=== PATIENT | male | born 1985 | race Caucasian/White ===

== ENCOUNTER 2017-12-27 12:56 | Emergency (ER) | payer BC, OTHER ==
[~2017-12-27] VITALS: Ht 175.3 cm; Wt 92.7 kg
[2017-12-27 13:03] VITALS: TEMP 36.6; Ht 175.3 cm; Wt 92.7 kg
[2017-12-27 13:08] VITALS: O2SAT 96
[2017-12-27] MEDS ORDERED: KETOROLAC TROMETHAMINE 30 MG/ML VIAL IV STA (13:12)
[2017-12-27] MEDS ORDERED: SODIUM CHLORIDE 0.9% 1000ML 1,000 ML IV STA (13:12)
[2017-12-27 13:40] LABS: BASO % 0.1 %; BASO ABS # 0.01 K/uL (0-0.2); EOS % 1.4 %; EOS ABS # 0.13 K/uL (0-0.5); HEMOGLOBIN 14.5 g/dL (14.0-18.0); IG# 0.02 K/uL (0.00-0.02); LYMPH % 18.3 %; LYMPH ABS # 1.74 K/uL (1.2-3.4); MEAN PLATELET VOLUME 9.1 fL (7.4-10.4); MONO ABS # 0.95 K/uL (0.11-0.59); NEUT ABS # 6.68 K/uL (1.4-6.5); PLATELET COUNT 215 K/uL (130-400); RED CELL DISTRIBUTION WIDTH CV 14.3 % (11.5-14.5); RED CELL DISTRIBUTION WIDTH SD 45.9 fL (36.4-46.3); WHITE BLOOD COUNT 9.53 K/uL (4.8-10.8)
--- NOTE | 2017-12-27 13:46 | DIAGNOSTIC IMAGING REPORT ---
CHEST ONE VIEW PORTABLE CLINICAL HISTORY: 32 years-old Male presenting with Chest Pain. TECHNIQUE: Portable upright AP view of the chest was obtained. COMPARISON: None. FINDINGS: Cardiomediastinal silhouette normal. Mildly prominent pulmonary vasculature Lungs and pleural spaces clear. Osseous structures normal. Upper abdomen normal. IMPRESSION: 1. Mildly prominent pulmonary vasculature could suggest volume overload. No other convincing evidence of acute cardiopulmonary disease. Electronically signed by: Deangelo Chaves M.D. 12/27/2017 1:45 PM Dictated Date/Time: 12/27/2017 1:44 PM
[2017-12-27 14:01] LABS: BLOOD UREA NITROGEN 16 mg/dl (7-18); CALCIUM 8.8 mg/dl (8.5-10.1); CARBON DIOXIDE 30 mmol/L (21-32); CREATININE 1.06 mg/dl (0.60-1.40); GLUCOSE 110 mg/dl (70-99); POTASSIUM 3.6 mmol/L (3.5-5.1); SODIUM 136 mmol/L (136-145)
[2017-12-27] MEDS ORDERED: OPTIRAY 320 IV PRN (14:15)
--- NOTE | 2017-12-27 14:47 | DIAGNOSTIC IMAGING REPORT ---
(CHEST FOR PE) ANGIO WITH CLINICAL HISTORY: 32 years-old Male presenting with ^+dd and SOB c/ chest pain. TECHNIQUE: Multidetector CT angiography of the chest was performed after administration of intravenous contrast. 3-D volumetric and/or maximum intensity projection (MIP) images were subsequently reconstructed for review. IV contrast: 87 mL of Optiray 320. A dose lowering technique was used consistent with the principles of ALARA (as low as reasonably achievable). COMPARISON: None. CT DOSE (mGy.cm): The estimated cumulative dose is 406.88 mGy.cm. 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 Pulmonary vasculature: The study is suboptimal for the assessment of the pulmonary vascular tree secondary to timing of the contrast bolus. Allowing for limited image quality, no central filling defect to suggest pulmonary embolus. Main pulmonary artery is not enlarged. No flattening of the interventricular septum. No intracardiac filling defect. No reflux of contrast into the hepatic veins. Remaining chest: On soft tissue windows, normal thyroid. Bilateral gynecomastia. No axillary, supraclavicular, hilar, or mediastinal lymphadenopathy. Atherosclerosis of the aorta. Normal heart size. No pericardial or pleural effusion. Hepatic steatosis. On lung windows, minimal dependent changes likely atelectasis. No other focal nodule or infiltrate. Airways patent. On bone windows, normal osseous structures. IMPRESSION: 1. Allowing for suboptimal image quality, no evidence of pulmonary embolus. No acute intrathoracic pathology. 2. Hepatic steatosis. Electronically signed by: Deangelo Chaves M.D. 12/27/2017 2:46 PM Dictated Date/Time: 12/27/2017 2:41 PM
[2017-12-27] MEDS ORDERED: CETI10TA84 PO (14:56)
[2017-12-27 15:38] VITALS: BP 134/79; PULSE 97; O2SAT 99
--- NOTE | 2017-12-27 19:42 | EMERGENCY ROOM VISIT NOTE ---
History Report prepared by Christopher: Fabián Doyle Under the Supervision of: Dr. Julius Pate D.O. First contact with patient: 13:04 Chief Complaint: CHEST PAIN Stated Complaint: R SHOULDER AND CHEST PAIN Nursing Triage Summary: pt reports after carrying heavy bags last night awoke in the night with R shoulder pain took aleve and went to sleep. This AM awoke with midsternal cp and sob reports this happens with my allergies but I can not tell. R shoulder pain cont today History of Present Illness The patient is a 32 year old male who presents to the Emergency Room with complaints of persistent chest pain since 1000 this morning. He currently rates his pain a 6/10 in severity. He notes the pain began in his right shoulder and elbow this morning at 0300 after he was carrying heavy bags. He notes a baseline cough and nasal drainage due to allergies. His right arm pain has completely resolved at this point. Chest pain is only present with deep breathing. If she is not breathing he has absolutely no chest pain. He denies any ear pain. He denies any history of aortic issues. Pt denies headache, change in vision, fevers, shortness of breath, nausea, vomiting, diarrhea, pain with urination. Patient denies diabetes, hypertension, hyperlipidemia, CAD, history of sudden at a young age, and smoking. Patient denies swelling of calves, recent trips, history of immobilization or recent surgery, prior history of DVT, hemoptysis, history of malignancy, or history of smoking. Source of History: patient Onset: 1000 this morning Position: chest Symptom Intensity: 6/10 Timing: other (persistent) Associated Symptoms: + cough, No fevers, No headache, No SOB, No vomiting, No diarrhea, No urinary symptoms Note: He notes right shoulder and elbow pain. He denies any ear pain or change in vision. Review of Systems See HPI for pertinent positives & negatives. A total of 10 systems reviewed and were otherwise negative. Past Medical & Surgical Medical Problems: (1) Sinus infection Surgical Problems: (1) H/O wisdom tooth extraction Family History Heart disease Hypertension Social History Smoking Status: Never Smoker Smokeless Tobacco Use: No Alcohol Use: occasionally (2/week) Marital Status: Housing Status: lives with significant other Occupation Status: employed Current/Historical Medications Scheduled Cetirizine (Zyrtec), 10 MG PO DAILY Allergies Coded Allergies: Nut Tree (Unverified Allergy, Severe, S.O.B, SWELLING, HIVES, 12/27/17) Animal Dander (Unverified Allergy, Intermediate, SNEEZING, 12/27/17) Dust (Unverified Allergy, Intermediate, SNEEZING, 12/27/17) POLLEN (Unverified Allergy, Intermediate, SNEEZING, 12/27/17) Uncoded Allergies: NUTS (Allergy, Unknown, 03/06/03) Physical Exam Vital Signs Date Time Temp Pulse Resp B/P (MAP) Pulse Ox O2 Delivery O2 Flow Rate FiO2 12/27/17 15:38 97 18 134/79 99 Room Air 12/27/17 14:30 85 18 113/82 100 Room Air 12/27/17 13:28 77 18 128/83 99 Room Air 12/27/17 13:12 85 12/27/17 13:08 96 Room Air 12/27/17 13:03 36.6 82 20 136/79 100 Room Air Physical Exam GENERAL: Sitting up in bed, alert, well appearing, well nourished, no distress, non-toxic EYE EXAM: normal conjunctiva. OROPHARYNX: no exudate, no erythema, lips, buccal mucosa, and tongue normal and mucous membranes are moist NECK: supple, no nuchal rigidity, no adenopathy, non-tender LUNGS: Clear to auscultation. Normal chest wall mechanics HEART: no murmurs, S1 normal and S2 normal ABDOMEN: abdomen soft, non-tender, normo-active bowel sounds, no masses, no rebound or guarding. BACK: Back is symmetrical on inspection and there is no deformity, no midline tenderness, no CVA tenderness. SKIN: no rashes and no bruising UPPER EXTREMITIES: upper extremities are grossly normal. Radial pulses equal. Pain with abduction of right shoulder greater than 80 degrees. LOWER EXTREMITIES: No pitting edema. Calves are equal bilateral. NEURO EXAM: Normal sensorium, cranial nerves II-XII grossly intact, normal speech, no gross weakness of arms, no gross weakness of legs. Medical Decision & Procedures ER Provider Diagnostic Interpretation: Radiology results as stated below per my review and the radiologist's interpretation: CHEST ONE VIEW PORTABLE CLINICAL HISTORY: 32 years-old Male presenting with Chest Pain. TECHNIQUE: Portable upright AP view of the chest was obtained. COMPARISON: None. FINDINGS: Cardiomediastinal silhouette normal. Mildly prominent pulmonary vasculature Lungs and pleural spaces clear. Osseous structures normal. Upper abdomen normal. IMPRESSION: 1. Mildly prominent pulmonary vasculature could suggest volume overload. No other convincing evidence of acute cardiopulmonary disease. Electronically signed by: Deangelo Chaves M.D. 12/27/2017 1:45 PM Dictated Date/Time: 12/27/2017 1:44 PM (CHEST FOR PE) ANGIO WITH CLINICAL HISTORY: 32 years-old Male presenting with ^+dd and SOB c/ chest pain. TECHNIQUE: Multidetector CT angiography of the chest was performed after administration of intravenous contrast. 3-D volumetric and/or maximum intensity projection (MIP) images were subsequently reconstructed for review. IV contrast: 87 mL of Optiray 320. A dose lowering technique was used consistent with the principles of ALARA (as low as reasonably achievable). COMPARISON: None. CT DOSE (mGy.cm): The estimated cumulative dose is 406.88 mGy.cm. 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 Pulmonary vasculature: The study is suboptimal for the assessment of the pulmonary vascular tree secondary to timing of the contrast bolus. Allowing for limited image quality, no central filling defect to suggest pulmonary embolus. Main pulmonary artery is not enlarged. No flattening of the interventricular septum. No intracardiac filling defect. No reflux of contrast into the hepatic veins. Remaining chest: On soft tissue windows, normal thyroid. Bilateral gynecomastia. No axillary, supraclavicular, hilar, or mediastinal lymphadenopathy. Atherosclerosis of the aorta. Normal heart size. No pericardial or pleural effusion. Hepatic steatosis. On lung windows, minimal dependent changes likely atelectasis. No other focal nodule or infiltrate. Airways patent. On bone windows, normal osseous structures. IMPRESSION: 1. Allowing for suboptimal image quality, no evidence of pulmonary embolus. No acute intrathoracic pathology. 2. Hepatic steatosis. Electronically signed by: Deangelo Chaves M.D. 12/27/2017 2:46 PM Dictated Date/Time: 12/27/2017 2:41 PM Laboratory Results 12/27/17 13:20 Red Blood Count 5.00, Mean Corpuscular Volume 88.0, Mean Corpuscular Hemoglobin 29.0, Mean Corpuscular Hemoglobin Concent 33.0, Mean Platelet Volume 9.1, Neutrophils (%) (Auto) 70.0, Lymphocytes (%) (Auto) 18.3, Monocytes (%) (Auto) 10.0, Eosinophils (%) (Auto) 1.4, Basophils (%) (Auto) 0.1, Neutrophils # (Auto ) 6.68, Lymphocytes # (Auto) 1.74, Monocytes # (Auto) 0.95, Eosinophils # (Auto ) 0.13, Basophils # (Auto) 0.01 12/27/17 13:20 Test 12/27/17 13:20 White Blood Count 9.53 K/uL (4.8-10.8) Red Blood Count 5.00 M/uL (4.7-6.1) Hemoglobin 14.5 g/dL (14.0-18.0) Hematocrit 44.0 % (42-52) Mean Corpuscular Volume 88.0 fL (80-100) Mean Corpuscular Hemoglobin 29.0 pg (25-34) Mean Corpuscular Hemoglobin Concent 33.0 g/dl (32-36) Platelet Count 215 K/uL (130-400) Mean Platelet Volume 9.1 fL (7.4-10.4) Neutrophils (%) (Auto) 70.0 % Lymphocytes (%) (Auto) 18.3 % Monocytes (%) (Auto) 10.0 % Eosinophils (%) (Auto) 1.4 % Basophils (%) (Auto) 0.1 % Neutrophils # (Auto) 6.68 K/uL (1.4-6.5) Lymphocytes # (Auto) 1.74 K/uL (1.2-3.4) Monocytes # (Auto) 0.95 K/uL (0.11-0.59) Eosinophils # (Auto) 0.13 K/uL (0-0.5) Basophils # (Auto) 0.01 K/uL (0-0.2) RDW Standard Deviation 45.9 fL (36.4-46.3) RDW Coefficient of Variation 14.3 % (11.5-14.5) Immature Granulocyte % (Auto) 0.2 % Immature Granulocyte # (Auto) 0.02 K/uL (0.00-0.02) D-Dimer 560 ug/L FEU (0-500) Anion Gap 1.0 mmol/L (3-11) Est Creatinine Clear Calc Drug Dose 113.6 ml/min Estimated GFR () 107.9 Estimated GFR (Non- 93.1 BUN/Creatinine Ratio 14.7 (10-20) Calcium Level 8.8 mg/dl (8.5-10.1) Troponin I < 0.015 ng/ml (0-0.045) Laboratory results per my review. Medications Administered Medications (Trade) Dose Ordered Sig/Bailey Route Start Time Stop Time Status Last Admin Dose Admin Sodium Chloride 1,000 ml @ 999 mls/hr Q1H1M STAT IV 12/27/17 13:12 12/27/17 14:12 DC 12/27/17 13:26 999 MLS/HR Ketorolac Tromethamine (Toradol Inj) 30 mg NOW STAT IV 12/27/17 13:12 12/27/17 13:13 DC 12/27/17 13:26 30 MG ECG Indication: chest pain Rate (beats per minute): 76 Rhythm: sinus rhythm Findings: no ectopy (no PVCs), other (Normal axis) Change: Patient's electrocardiogram interpreted by me. ED Course ED COURSE: Vital signs were reviewed and showed normal. The patients medical record was reviewed The above diagnostic studies were performed and reviewed. ED treatments and interventions as stated above. 1307: The patient was evaluated in room B12B. A complete history and physical examination was performed. 1312: Ordered Toradol 30 mg IV and Sodium Chloride 1,000 ml @ 999 mls/hr IV 1403: I reassessed the patient at this time. He is feeling better and resting comfortably. 1539: Upon reevaluation, the patient is feeling better. I discussed my findings with the patient and he understands and agrees with the treatment plan. Based on the patients age, coexisting illnesses, exam and lab findings the decision to treat as an outpatient was made. The patient remained stable while under my care. The patient appeared well at the time of discharge. Medical Decision Differential diagnoses includes but is not limited to acute coronary syndrome, myocardial infarction, pericarditis, pulmonary embolus, aortic dissection, pneumonia, pneumothorax, musculoskeletal, shingles, esophageal. Patient is a 32-year-old male who presents to ER for left-sided pleuritic chest pain which is been present since 10 AM this morning. He does have a little bit of a runny nose. His right shoulder and elbow pain have resolved. He has no cardiac risk factors. He is a low risk for PEs. CBC and BMP were unremarkable. Troponin was negative. D-dimer was elevated and CT PE was performed. CT shows no PEs. Patient was updated bedside. He was discharged as I favor this is likely a pleurisy. This is not cardiac and he is extremely low risk. Discussed with Pt concerning signs and symptoms to watch out for. Pt was instructed to follow up with their PCP and discussed with the patient their option to return to the ED at anytime for persistent or worsening symptoms. The appropriate anticipatory guidance and out-patient management, including indications for return to the emergency department, were explained at length to the patient and understood. Medication Reconcilliation Current Medication List: was personally reviewed by me Blood Pressure Screening Patient's blood pressure: Normal blood pressure Impression Primary Impression: Pleuritic chest pain Scribe Attestation The scribe's documentation has been prepared under my direction and personally reviewed by me in its entirety. I confirm that the note above accurately reflects all work, treatment, procedures, and medical decision making performed by me. Departure Information Dispostion Home / Self-Care Referrals Tripp Murguia D.O. (PCP) Forms Call Back Authorization, HOME CARE DOCUMENTATION FORM, IMPORTANT VISIT INFORMATION Patient Instructions ED Chest Pain Atypical Unkn Cause, My [facility] Additional Instructions Please follow up with your primary care doctor with in the next 24 hours. Any worsening of your symptoms, please return to the ED immediately. This includes any fevers greater than 100.4, worsening pain, chest pain, shortness breath, persistent nausea, vomiting, unable to eat or drink, or any other concerning signs or symptoms from your standpoint. Please take Tylenol or Motrin as needed for pain.
== END 2017-12-27 15:45 | disposition home or self-care (01) ==
LOC: C.EDB 12:58
DX: R07.81 Pleurodynia (principal); Z82.49 Family history of ischemic heart disease and other diseases of the circulatory system; Z79.899 Other long term (current) drug therapy; Z91.018 Allergy to other foods; Z91.048 Other nonmedicinal substance allergy status